=== PATIENT | female | born 1955 | race Caucasian/White ===

== ENCOUNTER 2018-06-04 19:11 | Emergency (ER) | payer BC, OTHER ==
[~2018-06-04] VITALS: Ht 160 cm; Wt 59.1 kg
[2018-06-04] MEDS ORDERED: ASPI81CH32 PO (19:17)
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
[2018-06-04 21:27] VITALS: BP 126/71
== END 2018-06-04 21:30 | disposition home or self-care (01) ==
LOC: M ED 19:11
DX: S03.2XXA Dislocation of tooth, initial encounter (principal); W50.0XXA Accidental hit or strike by another person, initial encounter; Y92.9 Unspecified place or not applicable; Y93.9 Activity, unspecified; Y99.9 Unspecified external cause status; Z79.82 Long term (current) use of aspirin